=== PATIENT | male | born 1985 | race Caucasian/White ===

== ENCOUNTER 2021-05-26 22:59 | Emergency (ER) | payer BC, SELFPAY ==
[2021-05-26 23:02] VITALS: PULSE 104; O2SAT 92
[2021-05-26 23:03] VITALS: BP 146/89; PULSE 133; RESP 11; O2SAT 97
[2021-05-26 23:09] VITALS: BP 146/89; PULSE 130; RESP 18; TEMP 37.1; O2SAT 97; BMI 30.3
--- NOTE | 2021-05-26 23:26 | ED_ITS ---
HPI - Chest Pain General Chief Complaint: Chest Pain Stated Complaint: Chest pain Time Seen by Provider: 05/26/21 23:26 Source: patient and EMS Mode of arrival: EMS Limitations: no limitations Limitations: no limitations History of Present Illness HPI narrative: The patient indicates he has intermittent vague midsternal chest discomfort over the past week. He indicates he has palpitations, no weakness, dizziness, or dyspnea. He has no history of cardiac or respiratory disease. He denies recent illness. He drinks about 6 alcoholic beverages daily, up to 12 weekends. He uses multiple injury drinks throughout the course the day. He does not currently use tobacco. He has no complaints of GI discomfort with his current symptoms. Related Data Allergies Allergy/AdvReac Type Severity Reaction Status Date / Time No Known Drug Allergies Allergy Verified 05/26/21 23:09 Review of Systems Constitutional Constitutional: Reports as per HPI, Reports body ache(s), Denies chills, Denies fatigue, Denies fever(s), Denies headache(s) and Denies night sweats Eyes Eyes: Denies change in vision ENT Ears, Nose, Mouth, and Throat: Denies vertigo, Reports dizziness, Denies dry mouth, Denies ear discharge, Denies headache(s), Denies sinus pain and Denies sore throat Cardiovascular Cardiovascular: Denies chest pain, Denies syncope, Reports rapid heart rate, Reports lightheadedness and Denies dyspnea Respiratory Respiratory: Denies cough and Denies dyspnea Gastrointestinal Gastrointestinal: Denies dyspepsia, Denies nausea and Denies vomiting Genitourinary Genitourinary: Denies dysuria Musculoskeletal Musculoskeletal: Reports arthralgias, Denies back pain and Reports myalgias Integumentary/Breasts Skin/Breast: Denies lesions and Denies rash Neurologic Neurologic: Denies confusion, Denies vertigo, Reports dizziness, Denies syncope and Denies headache(s) Psychiatric Psychiatric: Denies confusion Endocrine Endocrine: Denies fatigue Hematologic/Lymphatic On Anticoagulants: No Patient History Medical History (Updated 05/27/21 @ 09:27 by Ge Covington MD) No significant past medical history Surgical History (Updated 05/27/21 @ 09:27 by Ge Covington MD) No significant past surgical history Social History Smoking Status: Current every day smoker Smoking Status: Current every day smoker tobacco type: vaping alcohol intake frequency: 3 or more drinks per day Alcohol type: beer Substance Use Type: marijuana Exam Initial Vital Signs Initial Vital Signs: Vital Signs Pulse Rate 104 H 05/26/21 23:02 Pulse Oximetry 92 05/26/21 23:02 Const General: cooperative, well developed, well groomed, anxious and No diaphoretic Nutritional Appearance: average body habitus Limitations: mental status not altered [facility] Head: normocephalic and atraumatic Mouth: oral mucosae normal Throat: posterior oropharynx normal Eyes General: appearance normal, both eyes and all related structures Neck Neck: supple, No lymphadenopathy and No JVD Chest Chest: normal inspection of the chest Resp Auscultation: clear to auscultation bilaterally Cardio Rate: tachycardic Rhythm: regular rhythm Heart Sounds: S1 normal, S2 normal, no click, no gallops and no murmurs GI Inspection: normal to inspection Palpation: soft, No guarding, No mass and No tender Auscultation: normal bowel sounds Back/Spine/Pelvis Back: normal to inspection Skin General: no rashes or lesions noted Neuro General: patient alert, patient awake and patient oriented x3 Extrem General: normal to inspection, full ROM, no pedal edema and no calf tenderness Psych Mental Status: mental status grossly normal Course Course Course Narrative: With time and no additional intervention the patient's heart rate has improved from 120s down to 81. His heart rate was 150s at home. His blood pressure has improved from 146 to 118 sysolic without intervention. Potassium was given due to hyperkalemia, I suspect related to alcohol consumption. He feels much better at this time. We discussed his use of alcohol, and stimulant drinks. These are cardiovascular irritants. He knows to cut back on both beverages. Orders Ordered: ED Orders 05/27/21 01:17 ETOH [Ethanol (ETOH)] Stat Discontinued Medications Potassium Chloride (Potassium Chloride 20 Meq/15 Ml Udc) 40 meq PO NOW ONE Stop: 05/27/21 01:20 Last Admin: 05/27/21 01:25 Dose: 40 meq Documented by: MARTHA Vital Signs Vital signs: Vital Signs - 8 hr 05/27/21 01:30 05/27/21 02:00 05/27/21 02:30 Pulse Rate 95 H 85 82 Respiratory Rate 13 12 Blood Pressure 118/67 Pulse Oximetry 93 92 92 05/27/21 03:00 Pulse Rate 81 Respiratory Rate 18 Blood Pressure Pulse Oximetry 95 MDM - Chest Pain Lab Data Result diagrams: 05/26/21 22:45 05/26/21 22:45 Labs: Lab Results 05/26/21 05/26/21 05/26/21 Range/Units 22:45 22:45 22:45 WBC 8.5 (4.5-11.0) X10^3/uL RBC 4.91 (4.5-5.9) X10^6/uL Hgb 14.8 (13.5-17.5) g/dL Hct 43.8 (41-53) % MCV 89.1 (80-100) fL MCH 30.1 (26-34) PG MCHC 33.8 (30-36) % RDW 12.4 (11.6-14.8) % Plt Count 365 (150-400) X10^3/uL Neut % (Auto) 49.4 L (50-75) % Lymph % (Auto) 38.3 (25-40) % [place] % (Auto) 11.1 (3-14) % Eos % (Auto) 0.8 L (2-4) % Baso % (Auto) 0.4 (0-2) % Neut # (Auto) 4200 (5956-6163) /uL Lymph # (Auto) 3300 (7051-8803) /uL [place] # (Auto) 900 (0-900) /uL Eos # (Auto) 100 (0-450) /uL Baso # (Auto) 0 (0-100) /uL Sodium 142 (137-145) mmol/L Potassium 3.0 L (3.4-5.1) mmol/L Chloride 100 (98-107) mmol/L Carbon Dioxide 25 (22-32) mmol/L BUN 13 (9-20) mg/dL Creatinine 0.86 (0.66-1.25) mg/dL Estimated GFR > 60.0 (>60) mL/min BUN/Creatinine Ratio 15.1 (6-22) Glucose 109 H (70-100) mg/dL Calcium 9.4 (8.4-10.2) mg/dL Magnesium 2.0 (1.6-2.3) mg/dL Total Bilirubin 0.5 (0.2-1.3) mg/dL AST 35 (17-59) IU/L ALT 30 (<50) IU/L Alkaline Phosphatase 59 (38-126) U/L Total Creatine Kinase 170 (55-170) U/L CK-MB (CK-2) 2.31 (<2.37) ng/mL CK-MB (CK-2) Rel Index 1.4 L (1.5-5.0) % Troponin I Cancelled < 0.012 Total Protein 9.1 H (6.3-8.2) g/dL Albumin 5.2 H (3.5-5.0) g/dL Globulin 3.9 (1.7-4.1) g/dL Albumin/Globulin Ratio 1.3 (1.0-2.8) Lipase 54 (23-300) U/L Ethyl Alcohol ( - 10) mg/dL 05/26/21 Range/Units 22:45 WBC (4.5-11.0) X10^3/uL RBC (4.5-5.9) X10^6/uL Hgb (13.5-17.5) g/dL Hct (41-53) % MCV (80-100) fL MCH (26-34) PG MCHC (30-36) % RDW (11.6-14.8) % Plt Count (150-400) X10^3/uL Neut % (Auto) (50-75) % Lymph % (Auto) (25-40) % [place] % (Auto) (3-14) % Eos % (Auto) (2-4) % Baso % (Auto) (0-2) % Neut # (Auto) (4252-2386) /uL Lymph # (Auto) (0318-9718) /uL [place] # (Auto) (0-900) /uL Eos # (Auto) (0-450) /uL Baso # (Auto) (0-100) /uL Sodium (137-145) mmol/L Potassium (3.4-5.1) mmol/L Chloride (98-107) mmol/L Carbon Dioxide (22-32) mmol/L BUN (9-20) mg/dL Creatinine (0.66-1.25) mg/dL Estimated GFR (>60) mL/min BUN/Creatinine Ratio (6-22) Glucose (70-100) mg/dL Calcium (8.4-10.2) mg/dL Magnesium (1.6-2.3) mg/dL Total Bilirubin (0.2-1.3) mg/dL AST (17-59) IU/L ALT (<50) IU/L Alkaline Phosphatase (38-126) U/L Total Creatine Kinase (55-170) U/L CK-MB (CK-2) (<2.37) ng/mL CK-MB (CK-2) Rel Index (1.5-5.0) % Troponin I Total Protein (6.3-8.2) g/dL Albumin (3.5-5.0) g/dL Globulin (1.7-4.1) g/dL Albumin/Globulin Ratio (1.0-2.8) Lipase (23-300) U/L Ethyl Alcohol 76 H ( - 10) mg/dL Imaging Data Chest x-ray: Radiologist's Impression: No acute cardiopulmonary disease. ECG Data Attestation: I personally reviewed and interpreted this ECG as follows: (Sinus tachycardia. Normal intervals. No ectopy. No acute ST T wave changes.) Discharge Plan Departure Patient Disposition: Home Clinical Impression: Palpitation Activity Restrictions/Additional Instructions: The interview and exam suggest that you are consuming too many products that work as cardiac stimulants. I would suggest you reduce your intake of energy drinks and alcohol by 60% immediately. You may consider reducing more if necessary Continue the Prilosec you are currently taking for your stomach. Recheck with your PCM in 2-3 weeks. Return here if necessary.
[2021-05-26 23:30] VITALS: PULSE 127; RESP 16; O2SAT 94
--- NOTE | 2021-05-26 23:41 | DI.RAD.S_ITS ---
PROCEDURE: XR CHEST 1V INDICATIONS: chest pain TECHNIQUE: One view of the chest was acquired. COMPARISON: None. FINDINGS: Surgical changes and devices: None. Lungs and pleura: Lungs are clear. No pleural effusions or pneumothorax. Mediastinum: Mediastinal contours appear normal. Heart size is normal. Bones and chest wall: No suspicious bony lesions. Overlying soft tissues appear unremarkable. IMPRESSION: 1. No acute cardiopulmonary disease. Dictated by: Shmuel Healy M.D. on 05/27/2021 at 0:04 Approved by: Shmuel Healy M.D. on 05/27/2021 at 0:05
[2021-05-26 23:48] LABS: Add Manual Diff / Slide Review NO; Basophils Absolute Auto 0 /uL (0-100); Basophils Percent Auto 0.4 % (0-2); Eosinophils Absolute Auto 100 /uL (0-450); Eosinophils Percent Auto 0.8 % (2-4); Hematocrit 43.8 % (41-53); Hemoglobin 14.8 g/dL (13.5-17.5); Lymphocytes Absolute Auto 3300 /uL (1100-4500); Lymphocytes Percent Auto 38.3 % (25-40); Mean Corpuscular HGB Conc 33.8 % (30-36); Mean Corpuscular Hemoglobin 30.1 PG (26-34); Mean Corpuscular Volume 89.1 fL (80-100); Monocytes Absolute Auto 900 /uL (0-900); Monocytes Percent Auto 11.1 % (3-14); Neutrophils Absolute Auto 4200 /uL (1500-7000); Neutrophils Percent Auto 49.4 % (50-75); Platelet Count 365 X10^3/uL (150-400); Red Blood Cell Count 4.91 X10^6/uL (4.5-5.9); Red Cell Distribution Width 12.4 % (11.6-14.8); White Blood Cell Count 8.5 X10^3/uL (4.5-11.0)
[2021-05-26 23:54] LABS: Alanine Aminotransferase 30 IU/L (<50); Albumin 5.2 g/dL (3.5-5.0); Albumin Globulin Ratio 1.3 (1.0-2.8); Alkaline Phosphatase 59 U/L (38-126); Aspartate Aminotransferase 35 IU/L (17-59); BUN Creatinine Ratio 15.1 (6-22); Bilirubin Total 0.5 mg/dL (0.2-1.3); Blood Urea Nitrogen 13 mg/dL (9-20); Calcium 9.4 mg/dL (8.4-10.2); Carbon Dioxide 25 mmol/L (22-32); Chloride 100 mmol/L (98-107); Creatine Kinase 170 U/L (55-170); Estimated Glomerular Filt Rate > 60.0 mL/min (>60); Globulin 3.9 g/dL (1.7-4.1); Glucose 109 mg/dL (70-100); Lipase 54 U/L (23-300); Sodium 142 mmol/L (137-145); Total Protein 9.1 g/dL (6.3-8.2)
[2021-05-27] VITALS (7 sets, daily range): BP systolic 118; BP diastolic 67; PULSE 81–123; RESP 12–18; O2SAT 91–95
[2021-05-27 00:05] LABS: Troponin I < 0.012 ng/mL (0.01-0.034)
[2021-05-27 00:09] LABS: CKMB % Relative Index 1.4 % (1.5-5.0); Creatine Kinase MB 2.31 ng/mL (<2.37); HEMOLYSIS 16 (0-50)
[2021-05-27] MEDS: POTASSIUM CHLORIDE 20 MEQ/15 ML UDC 40 MEQ PO (01:25)
[2021-05-27 01:36] LABS: Ethanol (ETOH) 76 mg/dL
== END 2021-05-27 03:17 | disposition home or self-care (01) ==
PROVIDERS: Emergency Provider Emergency Medicine
DX: R00.2 Palpitations (principal); E87.5 Hyperkalemia; R00.0 Tachycardia, unspecified
CPT/HCPCS: 71045; 80053; 80320; 82550; 82553; 83690; 83735; 84484; 85025; 93005; 93010; 99283; 99284

== ENCOUNTER → 2022-01-02 15:25 | Outpatient (CLI) | payer BC, SELFPAY ==
[2022-01-02 16:21] LABS: Hemoglobin A1C% w Est Avg Glu 5.6 % (4.0-6.0)
[2022-01-02 17:35] LABS: Alanine Aminotransferase 24 IU/L (<50); Albumin 4.4 g/dL (3.5-5.0); Albumin Globulin Ratio 1.5 (1.0-2.8); Alkaline Phosphatase 70 U/L (38-126); Aspartate Aminotransferase 20 IU/L (17-59); BUN Creatinine Ratio 20.3 (6-22); Bilirubin Total 0.3 mg/dL (0.2-1.3); Blood Urea Nitrogen 16 mg/dL (9-20); Calcium 9.2 mg/dL (8.4-10.2); Carbon Dioxide 32 mmol/L (22-32); Chloride 98 mmol/L (98-107); Estimated Glomerular Filt Rate > 60 mL/min (>60); Glucose 65 mg/dL (70-100); HEMOLYSIS < 15 (0-50); Potassium 3.7 mmol/L (3.4-5.1); Sodium 137 mmol/L (137-145); Total Protein 7.4 g/dL (6.3-8.2)
== END ==
PROVIDERS: Referring Provider Physician Assistant; Visit Provider Physician Assistant
DX: R35.0 Frequency of micturition (principal)
CPT/HCPCS: 36415; 80053; 83036